=== PATIENT | male | born 1980 | race American Indian/Alaskan Native ===

== ENCOUNTER 2017-02-03 01:01 | Observation (INO) | payer MEDICAID, OTHER ==
[2017-02-03 01:06] VITALS: BMI 23.1
[2017-02-03 01:20] VITALS: TEMP 97.8
--- NOTE | 2017-02-03 01:27 | ED PDOC ---
Arrival/HPI - General Chief Complaint: Substance Abuse Time Seen by Provider: 02/03/17 01:21 Historian: Patient - History of Present Illness Narrative History of Present Illness (Text): 02/03/17 01:24 Yenny Sierra is a 36 year old male who was brought to emergency department by EMS after he was seen using PCP at a parking lot. Patient admits to using PCP. Denies any somatic complaints. Denies suicidal or homicidal ideations. Time/Duration: Prior to Arrival Symptom Onset: Gradual Symptom Course: Unchanged Severity Level: Mild Context: Street Past Medical History - Provider Review Nursing Documentation Reviewed: Yes - Infectious Disease Hx of Infectious Diseases: None - Past Medical History Past Medical History: No Previous - Psychiatric Hx Substance Use: Yes (PCPTANJA) - Past Surgical History Past Surgical History: No Previous - Anesthesia Hx Anesthesia: No Hx Anesthesia Reactions: No Hx Malignant Hyperthermia: No - Suicidal Assessment Feels Threatened In Home Enviroment: No Family/Social History - Physician Review Nursing Documentation Reviewed: Yes Family/Social History: No Known Family HX Smoking Status: Light Smoker < 10 Cigarettes Daily Hx Alcohol Use: Yes Hx Substance Use: Yes (PCP, TANJA) Hx Substance Use Treatment: No Allergies/Home Meds Allergies/Adverse Reactions: Allergies No Known Allergies Allergy (Verified 01/02/15 19:00) Review of Systems - Physician Review All systems were reviewed & negative as marked: Yes - Review of Systems Constitutional: Normal. absent: Fatigue, Fevers Respiratory: Normal. absent: SOB, Cough Cardiovascular: Normal. absent: Chest Pain Gastrointestinal: Normal Neurological: Normal. absent: Headache, Dizziness Psychiatric: Other (PCP use ). absent: Suicidal Ideation Physical Exam - Physical Exam Narrative Physical Exam (Text): Constitutional: No acute distress. Head: Normocephalic. Atraumatic. Eyes: PERRL. vertical nystagmus ENT: Moist mucous membranes. Neck: Supple. Cardiovascular: Regular rate. Chest: No tenderness. Respiratory: Clear to auscultation bilaterally. GI: Soft. Nontender. Nondistended. Back: No CVA tenderness. Musculoskeletal: No tenderness or swelling of extremities. Skin: No rash. Neurologic: Alert, no focal deficit. Vital Signs Reviewed: Yes Vital Signs Temp Pulse Resp BP Pulse Ox 02/03/17 03:51 67 19 119/88 100 02/03/17 01:06 97.8 F 98 H 16 137/85 98 Temperature: Afebrile Blood Pressure: Normal Pulse: Tachycardic Respiratory Rate: Normal Appearance: Positive for: Well-Appearing Pain Distress: None Mental Status: Positive for: Alert and Oriented X 3 Medical Decision Making ED Course and Treatment: 02/03/17 01:28 Impression: A 36 year old male brought in by EMS following PCP use in a parking lot. Pt denies any complaints. Progress Notes: 02/03/17 01:[address] patient on EDObs for intoxication. ED OBSERVATION Discharge: Yes Date of observation admission: 02/03/17 Time of observation admission: 01:33 - Observation admission statement Patient is being placed in observation because:: Intoxication - Goals of Observation Goals of observation are:: Awaiting sobriety - Progress Note Progress Note: 02/03/17 03:44 Patient is in stable condition and wants to be discharged home. Will discharge patient home. Advised to refrain from any further substance use. At this time, patient alert, answers questions appropriately, walking steadily with normal coordination. - Scribe Statement The provider has reviewed the documentation as recorded by the Beck Grant Provider Attestation: All medical record entries made by the Beck were at my direction and personally dictated by me. I have reviewed the chart and agree that the record accurately reflects my personal performance of the history, physical exam, medical decision making, and the department course for this patient. I have also personally directed, reviewed, and agree with the discharge instructions and disposition. Disposition/Present on Arrival - Present on Arrival Any Indicators Present on Arrival: No History of DVT/PE: No History of Uncontrolled Diabetes: No Urinary Catheter: No History of Decub. Ulcer: No History Surgical Site Infection Following: None - Disposition Have Diagnosis and Disposition been Completed?: Yes Diagnosis: Intoxication Disposition: HOME/ ROUTINE Disposition Time: :33 Patient Problems: Current Active Problems Problem Status Diagnosed Intoxication Acute Condition: STABLE
[2017-02-03 03:51] VITALS: BP 119/88; PULSE 67; RESP 19; O2SAT 100
== END 2017-02-03 05:00 | disposition home or self-care (01) ==
LOC: ED 01:01 → EROBSV 01:33
PROVIDERS: ADMIT Student in an Organized Health Care Education/Training Program; ATTEND Student in an Organized Health Care Education/Training Program
DX: T40.995A Adverse effect of other psychodysleptics [hallucinogens], initial encounter (principal); Y92.481 Parking lot as the place of occurrence of the external cause; F17.210 Nicotine dependence, cigarettes, uncomplicated
CPT/HCPCS: 99283; G0378